=== PATIENT | female | born 2005 | race Two or more races ===

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

== ENCOUNTER 2025-02-05 15:13 | Observation (INO) | payer MEDICAID ==
[~2025-02-05 15:13] MED LIST: ACET500T58 PO; AUG875T PO; IBUP-1454 PO; MAX35OO TOP
[2025-02-05] MEDS ORDERED: PREN-96 PO (15:47)
--- NOTE | 2025-02-05 16:57 | DVH ---
LIMITED OB ULTRASOUND > 14 WKS: HISTORY: Decreased movement TECHNIQUE: Multiple real-time grayscale images of the gravid uterus with duplex Doppler color flow an d M-mode spectral analysis. TRANSDUCER: Transabdominal COMPARISON: None Findings/ IMPRESSION: Cephalic presentation. Anterior placenta. heart rate 148. MVP, 5.06 cm.
--- NOTE | 2025-02-06 07:18 | DVHDS2 ---
Physician Discharge Progress N Final Diagnosis: DE C MOVEMENT RESOLVED Operations or Procedures: Operations or Procedures NST,SONO Condition on Discharge: Good Disposition: Home Discharge Instructions: Diet: Regular Activity: Light activity Medications: NA Follow Up Care: Specialist: 1W Discharge Statement: "Patient was advised to return to the ER or call 911 if any headaches, dizziness, shortness of breath, chest pain, abdominal pain, bleeding, fevers, or worsening of medical condition. Patient was counseled about treatment plan, medications, possible side effects, patientverbalized understanding. All questions were answered to the best of my ability. This discharge took greater then 30 minutes in planning, reviewing documentation, counseling the patient, and discussing with other team members." Visit Coding OBGYN Date of Service: Feb 05, 2025 Billing Provider: MARIA A STEVENS DO NAIL CUTTER Common Visit Codes: 27817-[id number] OBS CARE (HIGH) NAIL CUTTER Procedure Codes: 50513-22- NON-STRESS TEST MARIA A STEVENS DO Feb 06, 2025 07:18
== END 2025-02-05 16:36 | disposition home or self-care (01) ==
LOC: LDRP 15:13
PROVIDERS: ADMIT Obstetrics & Gynecology; ATTEND Obstetrics & Gynecology
DX: O36.8120 Decreased fetal movements, second trimester, not applicable or unspecified (principal); Z3A.22 22 weeks gestation of pregnancy; Z79.899 Other long term (current) drug therapy; Z98.890 Other specified postprocedural states
CPT/HCPCS: 59025; 76815; 81002; 94760; G0378

== ENCOUNTER 2025-05-22 00:02 | Inpatient (IN) | payer MEDICAID ==
[~2025-05-22] VITALS: Ht 177.8 cm; Wt 79.4 kg
[~2025-05-22 00:02] MED LIST changes: +PREN-96 PO
[2025-05-22] MEDS: PHISODERM TOP SOLN 240ML BTL TOP PRN (01:50)
[2025-05-22] MEDS: LIDOCAINE 2%HCL (LOCAL ANESTH.) INJ 20ML MDV IJ PRN (01:50)
[2025-05-22] MEDS: WITCH HAZEL-GLYCERIN PAD TOP PRN (01:50)
[2025-05-22] MEDS: DERMOPLAST 60ML BOTTLE TOP PRN (01:50)
[2025-05-22] MEDS: LACT. RINGERS/OXYTOCIN 20UNITS 500 ML IV ONE ×2 (01:51→01:52)
[2025-05-22 01:53] LABS: Hematocrit 33.0 % (36.0-46.0); Hemoglobin 11.1 g/dL (12.2-16.2); Mean Corpuscular Hemoglobin 27.1 pg (28.0-32.0); Mean Corpuscular Volume 80.3 fL (80.0-100.0); Nucleated Red Blood Cells % 0.0 %
[2025-05-22] MEDS: LACTATED RINGER'S 1,000 ML IV SCH (01:53)
--- NOTE | 2025-05-22 01:54 | LDN2 ---
Labor and Delivery Note Date 05/22/25 Age 20 1 Para 0 Diagnosis Normal Spontaneous Vaginal Delivery Patient arrived 05/22/2025 Time @ 0000 20 y/o (0,0,0,0) @ 37w6d EGA presents to the Place with report of painful contractions every 2 min; started at 1200 earlier in the day Reports good normal movements, no leakage of fluid . Blood show noted Upon arrival to unit SVE done by towing pilot CX C/C/+1 with bulging membranes noted Reported laboring at home Pushing involuntary with contractions Tracing category two SROM clear fluid @ 0013 Anticipate Vaginal Delivery Received care with Dr Chaudhari LMP: 08/30/2024 TONA 06/06/[address] Chaudhari labs Blood Type O positive Rubella Immune GBS negative RPR : Non Reactive - normal course / + THC in early Other labs Past History: Denies OB: G#1 Current PMH: Denies PSH: Denies Medications: PNV, Social Hist: Denies Physical Exam: Alert / orientated X3 Afebrile, Reports pain 10 DELIVERY NOTE 37w6d IUP SNLMP Spontaneous vaginal delivery of viable infant male @ 0030 05/22/2025 APGARS 7 at 1 min / 8 in 5 min LATONIA position, loos nuchal noted around the neck and reduced Infant placed skin to skin on pts chest. Cord clamped and cut after 1 min and transfer to radiant warmer Cord blood sent. Intact 3-vessel cord placenta Cord gasses collected by Respiratory therapist Placenta delivered spontaneously, Jose De Jesus. @ 0036 Pitocin IV bolus started. Placenta sent to pathology. Lidocaine injected to the perineal area for repair. Cervix/vagina inspected. Cervix intact. Second degree vaginal and perineal laceration noted and was repaired with 3-0 vicryl suture. Left Labial laceration repated with 4-0 vicryl suture Total QBL 275 ML Fundus at -1 umbilicus, firm, midline, and light lochia. Count correct x2. Patient to care and baby to couplet care, both stable. Rectal mucosa and sphincter intact. Rectal exam performed, WNL, not involved. Angy Kidd CNM Vaginal Delivery: VTX Vacuum Assisted: No Placenta: Spontaneous Sex: Male Weight 2693 grams / 5lbs 5 oz Apgars 1 min 7 / 5 min 8 Nuchal Cord Transected: Yes Amniotic Fluid: Clear Anesthesia Local perineal Episiotomy: No Extension: No Repaired with 3-0 Vicryl 4-Vicryl EBL 275 ML Labs Laboratory Tests Test 05/22/25 01:30 05/22/25 00:40 Range/Units White Blood Count Pending Red Blood Count Pending Hemoglobin Pending Hematocrit Pending Mean Corpuscular Volume Pending Mean Corpuscular Hemoglobin Pending Mean Corpuscular Hemoglobin Concent Pending Red Cell Distribution Width Pending Platelet Count Pending Mean Platelet Volume Pending Neutrophils (%) (Auto) Pending Lymphocytes (%) (Auto) Pending Monocytes (%) (Auto) Pending Basophils (%) (Auto) Pending Neutrophils # (Auto) Pending Lymphocytes # (Auto) Pending Monocytes # (Auto) Pending Prothrombin Time Pending Prothrombin Time INR Pending Activated Partial Thromboplast Time Pending Sodium Level Pending Potassium Level Pending Chloride Level Pending Carbon Dioxide Level Pending Anion Gap Pending Blood Urea Nitrogen Pending Creatinine Pending Glomerular Filtration Rate Calc Pending BUN/Creatinine Ratio Pending Serum Glucose Pending Calcium Level Pending Total Bilirubin Pending Aspartate Amino Transferase (AST) Pending Alanine Aminotransferase (ALT) Pending Alkaline Phosphatase Pending Total Protein Pending Albumin Pending Treponema pallidum Antibody Pending Hepatitis C Antibody Pending Urine Color Pending Urine Clarity Pending Urine pH Pending Urine Specific Triangle Pending Urine Protein Pending Urine Ketones Pending Urine Blood Pending Urine Nitrite Pending Urine Bilirubin Pending Urine Urobilinogen Pending Urine Leukocyte Esterase Pending Urine RBC Pending Urine Microscopic WBC Pending Urine Squamous Epithelial Cells Pending Urine Bacteria Pending Urine Glucose Pending Urine Opiates Screen Pending Urine Fentanyl Screen Pending Urine Barbiturates Screen Pending Urine Phencyclidine Screen Pending Urine Amphetamines Screen Pending Urine Benzodiazepines Screen Pending Urine Cocaine Screen Pending Urine Cannabinoids Screen Pending Current Medications Medications (Trade) Dose Ordered Sig/Yaa Route PRN Reason Start Time Stop Time Status Last Admin Dose Admin Lactated Ringer's 1,000 ml @ 125 mls/hr Q8H IV 05/22/25 00:30 Witch Aide (Tucks) 1 pad PRN PRN TOP PERINEAL AREA DISCOMFORT 05/22/25 00:30 Sodium Lauryl Sulfate (Phisoderm) 240 ml PRN PRN TOP PERINEAL AREA DISCOMFORT 05/22/25 00:30 Benzocaine (Dermoplast) 1 applic PRN PRN TOP PERINEAL AREA DISCOMFORT 05/22/25 00:30 Lidocaine HCl (Xylocaine) 20 ml ONCE PRN IJ PERINEAL AREA DISCOMFORT 05/22/25 00:30 Oxytocin 500 ml @ 999 mls/hr Q31M ONCE IV 05/22/25 00:30 05/22/25 01:00 DC Oxytocin 500 ml @ 125 mls/hr Q4H ONCE IV 05/22/25 01:00 05/22/25 04:59 Complications None Conditions Stable Visit Coding OBGYN Date of Service: May 22, 2025 Billing Provider: ANGY MOSCOSO CNM EXPLOSIVE ORDNANCE TECHNICIAN Common Visit Codes: [id number] OBS CARE (MOD), [id number] INP/OBS CARE (LOW), [id number] INP/OBS CARE (MOD) [facility] 01[facility]54
[2025-05-22 01:57] LABS: Urine Amorphous Crystal FEW /hpf (None Seen); Urine Budding Yeast MANY /hpf (None Seen); Urine Protein, UAD Negative (Negative)
[2025-05-22 02:05] LABS: Alanine Aminotransferase 15 U/L (7-40); Albumin 3.8 g/dL (3.2-4.8); Anion Gap 9 (5-15); BUN/Creatinine Ratio 11.3 (10.0-20.0); Calcium 8.8 mg/dL (8.7-10.4); Carbon Dioxide 25 mmol/L (20-31); Chloride 103 mmol/L (98-107); Potassium 4.0 mmol/L (3.5-5.1); Sodium 137 mmol/L (136-145); Total Protein 6.8 g/dL (5.7-8.2)
[2025-05-22 02:08] LABS: INR 0.92 (0.9-1.15); Partial Thromboplastin Time 24.1 SEC (24.5-34.5); Prothrombin Time 9.8 sec (9.3-11.8)
[2025-05-22] MEDS: LIDOCAINE 2%HCL (LOCAL ANESTH.) INJ 10ml MDV IJ ONE (02:15)
[2025-05-22] MEDS ORDERED: IBUPROFEN 600 MG TAB PO PRN (02:15)
[2025-05-22] MEDS ORDERED: ACETAMINOPHEN 325 MG TAB PO PRN (02:15)
[2025-05-22] MEDS ORDERED: ONDANSETRON ODT 4 MG TAB PO PRN (02:15)
[2025-05-22 02:36] LABS: Amphetamine Screen, Urine Neg (NEGATIVE); Barbiturate Scree,Urine Neg (NEGATIVE); Benzodiazephine Screen, Urine Neg (NEGATIVE); Cannabinoid Screen, Urine Pos (NEGATIVE); Cocaine Screen, Urine Neg (NEGATIVE); Opiate Scree,Urine Neg (NEGATIVE); Phencyclidine Screen, Urine Neg (NEGATIVE)
[2025-05-22 02:36] LABS: Alkaline Phosphatase 210 U/L (46-116); Bilirubin, Total 0.2 mg/dL (0.2-1.0); Blood Urea Nitrogen 6 mg/dL (9-23); Glucose 111 mg/dL (74-106)
[2025-05-22 03:00] VITALS: BP 116/69; PULSE 75; RESP 18; TEMP 98.3; O2SAT 98
[2025-05-22 11:00] VITALS: BP 125/72; PULSE 82; RESP 18; TEMP 98.6; O2SAT 98
[2025-05-22 15:00] VITALS: BP 127/70; PULSE 81; RESP 18; TEMP 98.3; O2SAT 98
[2025-05-22 19:00] VITALS: BP 116/65; PULSE 74; RESP 20; TEMP 99.4; O2SAT 99
[2025-05-22] MEDS ORDERED: DOCUSATE SOD 100 MG CAP PO SCH (22:00)
[2025-05-22 23:15] VITALS: BP 112/60; PULSE 76; RESP 16; TEMP 98.4; O2SAT 99
[2025-05-23 03:00] VITALS: BP 111/65; PULSE 69; RESP 16; TEMP 99; O2SAT 99
[2025-05-23 07:00] VITALS: BP 111/65; PULSE 69; RESP 16; RESP 18; TEMP 98.8; O2SAT 96; O2SAT 99
--- NOTE | 2025-05-23 07:19 | DVHDS2 ---
Discharge Summary Date of Admission May 22, 2025 at 00:02 Date of Discharge: May 23, 2025 Admitting Diagnosis labor Labs/Diagnostic Data: Laboratory Results Test 05/22/25 01:30 05/22/25 00:40 White Blood Count 18.2 10^3/uL (4.4-10.8) Red Blood Count 4.10 10^6/uL (4.0-5.20) Hemoglobin 11.1 g/dL (12.2-16.2) Hematocrit 33.0 % (36.0-46.0) Mean Corpuscular Volume 80.3 fL (80.0-100.0) Mean Corpuscular Hemoglobin 27.1 pg (28.0-32.0) Mean Corpuscular Hemoglobin Concent 33.8 g/dL (32.0-36.0) Red Cell Distribution Width 16.5 % (11.8-14.3) Platelet Count 267 10^3/uL (140-450) Mean Platelet Volume 7.5 fL (6.9-10.8) Neutrophils (%) (Auto) 86.4 % (37.0-80.0) Lymphocytes (%) (Auto) 8.0 % (10.0-50.0) Monocytes (%) (Auto) 4.9 % (0.0-12.0) Eosinophils (%) (Auto) 0.4 % (0.0-7.0) Basophils (%) (Auto) 0.3 % (0.0-2.0) Neutrophils # (Auto) 15.7 10 ^3/uL (1.6-8.6) Lymphocytes # (Auto) 1.5 10 ^3/uL (0.4-5.4) Monocytes # (Auto) 0.9 10 ^3/uL (0-1.3) Eosinophils # (Auto) 0.1 10 ^3/uL (0-0.8) Basophils # (Auto) 0 10 ^3/uL (0-0.2) Nucleated Red Blood Cells 0.0 % Prothrombin Time 9.8 sec (9.3-11.8) Prothrombin Time INR 0.92 (0.9-1.15) Activated Partial Thromboplast Time 24.1 SEC (24.5-34.5) Sodium Level 137 mmol/L (136-145) Potassium Level 4.0 mmol/L (3.5-5.1) Chloride Level 103 mmol/L (98-107) Carbon Dioxide Level 25 mmol/L (20-31) Anion Gap 9 (5-15) Blood Urea Nitrogen 6 mg/dL (9-23) Creatinine 0.53 mg/dL (0.550-1.02) Glomerular Filtration Rate Calc 136 mL/min (>90) BUN/Creatinine Ratio 11.3 (10.0-20.0) Serum Glucose 111 mg/dL (74-106) Calcium Level 8.8 mg/dL (8.7-10.4) Total Bilirubin 0.2 mg/dL (0.2-1.0) Aspartate Amino Transferase (AST) 19 U/L (13-40) Alanine Aminotransferase (ALT) 15 U/L (7-40) Alkaline Phosphatase 210 U/L (46-116) Total Protein 6.8 g/dL (5.7-8.2) Albumin 3.8 g/dL (3.2-4.8) Treponema pallidum Antibody Non-reactive (Negative) Hepatitis C Antibody Negative (Negative) Urine Color Colorless (Yellow) Urine Clarity Ex.turbid (Clear) Urine pH 7.5 (5.0-9.0) Urine Specific Blessing 1.014 (1.001-1.035) Urine Protein Negative (Negative) Urine Ketones Negative (Negative) Urine Blood Negative /uL (Negative) Urine Nitrite Negative (Negative) Urine Bilirubin Negative (Negative) Urine Urobilinogen Normal mg/dL (Negative) Urine Leukocyte Esterase Negative /uL (Negative) Urine RBC 7 /hpf (0 - 4) Urine Microscopic WBC 1 /HPF (0-5) Urine Squamous Epithelial Cells None seen /hpf (<5) Urine Amorphous Crystals Few /hpf (None Seen) Urine Bacteria None seen /hpf (None Seen) Urine Yeast (Budding) Many /hpf (None Seen) Urine Glucose Normal mg/dL (Normal) Urine Opiates Screen Neg (NEGATIVE) Urine Fentanyl Screen Neg (NEGATIVE) Urine Barbiturates Screen Neg (NEGATIVE) Urine Phencyclidine Screen Neg (NEGATIVE) Urine Amphetamines Screen Neg (NEGATIVE) Urine Benzodiazepines Screen Neg (NEGATIVE) Urine Cocaine Screen Neg (NEGATIVE) Urine Cannabinoids Screen Pos (NEGATIVE) Other Laboratory Tests 05/22/25 01:30 Brief Hx & Hospital Course: Consults/Reason for consult none Operations or Procedures none Condition at Discharge: Good Final Diagnosis/Problems List Discharge Disposition: Home Discharge Instruct/Medications Diet: Regular Activity: Light activity (pelvic rest 6 weeks) Follow Up/Referral: Primary OB Medications: none Scheduled Amoxicillin & Pot Clavulanate (Augmentin Tablet), 875 MG PO BID [id number] (Triple Antibiotic), 1 APPLIC TOP BID Vit W/ Ferrous Fumara ( One Daily), 1 TAB PO DAILY, (Reported) Scheduled PRN Acetaminophen (Acetaminophen), 500 MG PO Q4HP PRN Ibuprofen (Ibuprofen), 1 TAB PO Q6HP PRN Discharge Statement: "Patient was advised to return to the ER or call 911 if any headaches, dizziness, shortness of breath, chest pain, abdominal pain, bleeding, fevers, or worsening of medical condition. Patient was counseled about treatment plan, medications, possible side effects, patientverbalized understanding. All questions were answered to the best of my ability. This discharge took greater then 30 minutes in planning, reviewing documentation, counseling the patient, and discussing with other team members." ASSESSMENT ASSESSMENT Assessment Visit Coding OBGYN Date of Service: May 23, 2025 Billing Provider: MAXIME CONTRERAS DO POSTAL WORKER Common Visit Codes: 97536-LGE/OBS SAME DATE (LOW), 76327-SOB/OBS SAME DATE (MOD), 71140-KGT/OBS SAME DATE (HIGH) POSTAL WORKER Procedure Codes: [id number] OB CARE,VAG DELIVERY MAXIME CONTRERAS DO May 23, 2025 07:19
[2025-05-23 11:00] VITALS: BP 111/81; PULSE 80; RESP 16; TEMP 98.6; O2SAT 99
[2025-05-23 12:15] VITALS: TEMP 37.1
== END 2025-05-23 14:30 | disposition home or self-care (01) | DRG 560 ==
LOC: LDRP 00:02
PROVIDERS: ADMIT Obstetrics & Gynecology; ATTEND Obstetrics & Gynecology
PROC: 10E0XZZ Delivery of Products of Conception, External Approach (ICD-10-PCS; principal; 2025-05-22)
PROC: 0KQM0ZZ Repair Perineum Muscle, Open Approach (ICD-10-PCS; 2025-05-22)
DX: O69.81X0 Labor and delivery complicated by cord around neck, without compression, not applicable or unspecified (principal); Z37.0 Single live birth; O70.1 Second degree perineal laceration during delivery; Z3A.37 37 weeks gestation of pregnancy
CPT/HCPCS: 36415; 59025; 59409; 80053; 80307; 81001; 85025; 85610; 85730; 86780; 86803; 86850; 86900; 86901; 94760; 96360; 96365; 96366; G0378